=== PATIENT | male | born 1955 | race Hispanic/Latino ===

== ENCOUNTER 2018-04-25 06:52 | Day surgery (SDC) | payer BC ==
[2018-04-25 07:34] VITALS: BMI 30.1
[2018-04-25 08:08] LABS: BASO # 0.03 K/mm3 (0.0-2.0); BASO % 0.3 % (0.0-3.0); EOS # 0.3 (0.0-0.7); EOS % 3.3 % (1.5-5.0); GRAN # 5.42 (1.4-6.5); GRAN % 61.7 % (50.0-68.0); HEMOGLOBIN 13.5 g/dL (14.0-18.0); LYMPH # 2.4 (1.2-3.4); LYMPH % 27.6 % (22.0-35.0); MEAN CELL VOLUME 87.7 fl (80.0-105.0); MEAN CORPUSCULAR HEMOGLOBIN 30.1 pg (25.0-35.0); MEAN CORPUSCULAR HGB CONC 34.4 g/dl (31.0-37.0); MEAN PLATELET VOLUME 9.1 fl (7.0-11.0); MONO # 0.6 (0.1-0.6); MONO % 7.1 % (1.0-6.0); RBC 4.48 10^6/uL (3.5-6.1); RED CELL DISTRIBUTION WIDTH 12.9 % (11.5-14.5); WHITE BLOOD COUNT 8.8 10^3/uL (4.5-11.0)
[2018-04-25 08:15] LABS: BLOOD UREA NITROGEN 16 mg/dL (7-21); CALCIUM 9.2 mg/dL (8.4-10.5); GFR NON-AFRICAN AMERICAN > 60
[2018-04-25 08:17] LABS: INR 1.23; PROTHROMBIN TIME 14.2 SECONDS (9.4-12.5)
[2018-04-25 08:28] VITALS: O2SAT 97
[2018-04-25] MEDS ORDERED: Lidocaine 2% Inj (20ml) ONE (10:34)
[2018-04-25] MEDS ORDERED: Iodixanol 320 MG/ML 200 ML BOTTLE IV ONE (10:34)
[2018-04-25] MEDS ORDERED: Iohexol 350mgl/ml 50 ML ONE (10:34)
[2018-04-25] MEDS ORDERED: Midazolam 2 MG/2 ML VIAL ONE ×3 (10:55→11:12)
[2018-04-25] MEDS ORDERED: Eptifibatide 20 mg/10mL Inj IVP ONE (11:16)
[2018-04-25] MEDS ORDERED: Sodium Chloride 0.9% 1,000 ML IV SCH (13:15)
--- NOTE | 2018-04-25 21:40 | CARD ---
APPROVED REPORT Date of service: 04/25/2018 EKG Measurement Heart [id number] <Conclusion> Normal sinus rhythm Normal ECG
--- NOTE | 2018-04-25 23:13 | PROCN ---
DATE: 04/25/2018 PTCA and stent of an RCA preceded by cardiac catheterization. HISTORY: The patient is a 63-year-old male who presents with exertional angina. PAST MEDICAL HISTORY: Notable for diabetes mellitus, hypertension, obesity and smoking. FAMILY HISTORY: He has a strong family history for CAD with a brother who recently from a cardiac event. His stress test was abnormal. Because of this, cardiac catheterization was recommended. PROCEDURE: Left heart catheterization with coronary arteriography and left ventriculogram with supra-aortic valvular injection, followed by PTCA and stent of an RCA. Right femoral artery was cannulated with a 6-Danish sheath. There were no complications. I performed moderate sedation which included the presence of an independent trained observer that assisted in monitoring the patient's level of consciousness and physiologic status. After administration of Versed and fentanyl, my intra service time was 60 minutes. The findings on catheterization revealed a left ventricle that contracted normally. Estimated ejection fraction of 60%. The patient had a right dominant circulation. The RCA was a large vessel that was diffusely diseased and heavily calcified. In the proximal portion of the RCA, there was 99% stenosis noted. In the mid to distal RCA, there were heavily calcified lesions of approximately 50%. The left main artery was unremarkable. The LAD in its proximal portion revealed an eccentric 70% stenosis. The rest of the LAD and diagonal vessels revealed diffuse atherosclerosis. The circumflex artery and obtuse marginal branches revealed diffuse atherosclerosis without critical lesions. The patient was started on intravenous Angiomax as well as 2 boluses of Integrilin. The guiding catheter was placed in the ostium of the RCA and 0.014 ATW wire through a GuideLiner was used to cross the heavily calcified and subtotaled RCA. A 2 balloon, followed by a 2.5, followed by a 3 balloon was utilized to dilate the lesion. The wire was then exchanged for a greater support wire. A 3.5 x 15 mm drug-eluting stent was placed and deployed at 15 atmospheres of pressure. Repeat coronary arteriography after balloon deflation and removal revealed an excellent result with no residual stenosis and MAYURI-3 flow. The mid to distal 50-60% lesions in the RCA were not manipulated. Angio-Seal was used to close the femoral artery site. The patient tolerated the procedure well. In summary, the procedure was successful for PTCA and stent of a subtotally occluded RCA that was heavily calcified. A drug-eluting stent was utilized. Cardiac catheterization reveals normal LV function as well as diffuse calcification and atherosclerosis throughout his coronary tree. There is a residual eccentric 70% stenosis in the proximal LAD. Given these findings, the patient will need to remain on aspirin indefinitely and Plavix for least a year. He will need to undergo a strict cardiac risk reduction program. We will bring him back in 2 weeks for PTCA and stent of the LAD. Oliver Delgado MD
[2018-04-25 23:33] VITALS: RESP 20
[2018-04-26 06:43] VITALS: BP 137/73; PULSE 98; TEMP 98
[2018-04-26 07:14] LABS: BASO # 0.02 K/mm3 (0.0-2.0); BASO % 0.3 % (0.0-3.0); EOS # 0.3 (0.0-0.7); EOS % 3.5 % (1.5-5.0); GRAN # 4.27 (1.4-6.5); GRAN % 56.6 % (50.0-68.0); HEMOGLOBIN 12.9 g/dL (14.0-18.0); LYMPH # 2.2 (1.2-3.4); LYMPH % 28.6 % (22.0-35.0); MEAN CELL VOLUME 88.6 fl (80.0-105.0); MEAN CORPUSCULAR HEMOGLOBIN 29.5 pg (25.0-35.0); MEAN CORPUSCULAR HGB CONC 33.3 g/dl (31.0-37.0); MEAN PLATELET VOLUME 9.7 fl (7.0-11.0); MONO # 0.8 (0.1-0.6); RBC 4.37 10^6/uL (3.5-6.1); RED CELL DISTRIBUTION WIDTH 13.1 % (11.5-14.5); WHITE BLOOD COUNT 7.5 10^3/uL (4.5-11.0)
[2018-04-26 07:40] LABS: BLOOD UREA NITROGEN 11 mg/dL (7-21); CALCIUM 8.8 mg/dL (8.4-10.5); GFR NON-AFRICAN AMERICAN > 60
--- NOTE | 2018-04-26 09:47 | CP.PCM.HP ---
<Jacqui Hoff - Last Filed: 04/26/18 10:24> History of Present Illness - History of Present Illness History of Present Illness: Pgy3 Medicine note for Dr. Sanford 63yo male pmhx DM2, HTN, obesity, and extensive tobacco use presents for cardiac cath s/p abnormal stress test. Patient reports he has an extensive family history of cardiac disease and was worried about his heart in light of his chronic conditions and tobacco use. Patient had an abnormal stress test and was scheduled for cardiac catherization by Dr. Delgado. Patient was found to have a 99% stenosis in the proximal RCA and 70% stenosis in the proximal LAD. He had a SHABBIR stent placed in the RCA and is due to have a stent placed in the LAD next week. Patient tolerated procedure well and had no acute events overnight. He complained of some mild soreness and nursing noted an small area of ecchymosis at his right groin at the site of the cardiac cath. Patient denied other acute complaints of fever, chills, headache, dizziness, chest pain, palpitations, SOB, cough, abd pain, nausea, vomiting, bowel/bladder complaints, pain/swelling/numbness/tingling/coolness in his extremities bilaterally. 12point ROS reviewed and negative unless otherwise aforementioned above PMHx: DM2, HTN, obesity, and extensive tobacco use Meds: pls see chart ALL: NKDA SocHx: used to smoke 1ppd for years and quit 2-3 years ago. FamHx: 2 brothers and 1 sister of CAD; 1 sister is alive and open heart surgery. PMD: Dr Sneed Cardio: Dr Delgado Present on Admission - Present on Admission Any Indicators Present on Admission: No Review of Systems - Review of Systems All systems: reviewed and no additional remarkable complaints except Review of Systems: as per HPI Past Patient History - CARDIAC Hx Pacemaker: No - NEUROLOGICAL Hx Paralysis: No - HEMATOLOGICAL/ONCOLOGICAL Hx Blood Transfusions: No - MUSCULOSKELETAL/RHEUMATOLOGICAL Hx Musculoskeletal Disorders: No - PSYCHIATRIC Hx Emotional Abuse: No Hx Physical Abuse: No Hx Substance Use: No - SURGICAL HISTORY Hx Surgeries: Yes - ANESTHESIA Hx Anesthesia Reactions: No Hx Malignant Hyperthermia: No Meds Home Medications: Home Medication List Medication Instructions Recorded Confirmed Type RX: Clopidogrel [Plavix] 75 mg PO DAILY #30 tab 04/26/18 Rx Allergies/Adverse Reactions: Allergies Allergy/AdvReac Type Severity Reaction Status Date / Time No Known Allergies Allergy Verified 04/25/18 07:34 Physical Exam - Constitutional Appears: Non-toxic, No Acute Distress - Head Exam Head Exam: ATRAUMATIC, NORMAL INSPECTION, NORMOCEPHALIC - Eye Exam Eye Exam: EOMI, Normal appearance, PERRL. absent: Conjunctival injection, Scleral icterus Pupil Exam: NORMAL ACCOMODATION - ENT Exam ENT Exam: Mucous Membranes Moist - Neck Exam Neck exam: Positive for: Full Rom, Normal Inspection. Negative for: Lymphadenopathy - Respiratory Exam Respiratory Exam: Clear to Auscultation Bilateral, NORMAL BREATHING PATTERN. absent: Accessory Muscle Use, Rales, Rhonchi, Wheezes, Respiratory Distress - Cardiovascular Exam Cardiovascular Exam: +S1, +S2. absent: Systolic Murmur - GI/Abdominal Exam GI & Abdominal Exam: Normal Bowel Sounds, Soft. absent: Firm, Guarding, Rigid, Tenderness - Rectal Exam Rectal Exam: Deferred - Extremities Exam Extremities exam: Positive for: normal capillary refill, normal inspection, pedal pulses present. Negative for: calf tenderness, pedal edema, tenderness Additional comments: small area ecchymosis noted at right groin at site of cardiac cath minimal tenderness on palpation no bruit auscultated distal pulses intact b/l extremities warm to touch b/l - Back Exam Back exam: NORMAL INSPECTION. absent: rash noted - Neurological Exam Neurological exam: Alert, CN II-XII Intact, Oriented x3 - Psychiatric Exam Psychiatric exam: Normal Affect, Normal Mood - Skin Skin Exam: Dry, Intact, Normal Color, Warm Results - Vital Signs Recent Vital Signs: Last Vital Signs Temp 98.0 F 04/26/18 06:00 Pulse 98 H 04/26/18 06:00 Resp 20 04/26/18 06:00 BP 137/73 04/26/18 06:00 Pulse Ox 97 04/26/18 06:00 - Labs Result Diagrams: 04/26/18 06:45 04/26/18 06:45 Labs: Laboratory Results - last 24 hr 04/26/18 04/26/18 06:45 06:45 WBC 7.5 RBC 4.37 Hgb 12.9 L Hct 38.7 L MCV 88.6 MCH 29.5 MCHC 33.3 RDW 13.1 Plt Count 203 MPV 9.7 Gran % 56.6 Lymph % (Auto) 28.6 [place] % (Auto) 11.0 H Eos % (Auto) 3.5 Baso % (Auto) 0.3 Gran # 4.27 Lymph # (Auto) 2.2 Clark # (Auto) 0.8 H Eos # (Auto) 0.3 Baso # (Auto) 0.02 Sodium 136 Potassium 4.8 Chloride 103 Carbon Dioxide 28 Anion Gap 10 BUN 11 Creatinine 0.7 L Est GFR ( Amer) > 60 Est GFR (Non-Af Amer) > 60 Random Glucose 196 H Calcium 8.8 Assessment & Plan - Assessment and Plan (Free Text) Assessment: -CAD s/p RCA stent -Multivessel CAD -HTN -DM2 -Hypercholesterolemia -Obesity -Extensive tobacco use in the past Plan: Patient is s/p cardiac cath with 1 SHABBIR in the RCA and is due to have a stent in the LAD next week. Patient has been on ASA 81mg daily which he will be on indefinitely and has been started on Plavix 75mg daily for 1 year as of now. Patient also continued on high intensity statin due to ASCVD risk. Patient will likely be discharged later today after evaluation by cardiology and will return for his procedure next week. Patient was normotensive since admission. Patient was advised strongly on following a heart healthy diet and to continue tobacco cessation. He has been started on a strict cardiac risk reduction program. Discussed with Dr. Claribel Hoff PGY3 <rA Sanford S - Last Filed: 04/26/18 19:23> Results - Vital Signs Recent Vital Signs: Last Vital Signs Temp 98.0 F 04/26/18 06:00 Pulse 98 H 04/26/18 06:00 Resp 20 04/26/18 06:00 BP 137/73 04/26/18 06:00 Pulse Ox 97 04/26/18 06:00 - Labs Result Diagrams: 04/26/18 06:45 04/26/18 06:45 Labs: Laboratory Results - last 24 hr 04/26/18 04/26/18 06:45 06:45 WBC 7.5 RBC 4.37 Hgb 12.9 L Hct 38.7 L MCV 88.6 MCH 29.5 MCHC 33.3 RDW 13.1 Plt Count 203 MPV 9.7 Gran % 56.6 Lymph % (Auto) 28.6 Clark % (Auto) 11.0 H Eos % (Auto) 3.5 Baso % (Auto) 0.3 Gran # 4.27 Lymph # (Auto) 2.2 Clark # (Auto) 0.8 H Eos # (Auto) 0.3 Baso # (Auto) 0.02 Sodium 136 Potassium 4.8 Chloride 103 Carbon Dioxide 28 Anion Gap 10 BUN 11 Creatinine 0.7 L Est GFR ( Amer) > 60 Est GFR (Non-Af Amer) > 60 Random Glucose 196 H Calcium 8.8 Assessment & Plan - Assessment and Plan (Free Text) Plan: The patient was seen and examined by me. I reviewed the note of the medical technologist generalist and agree with the assessment and plan. I have reviewed the medications and the last labs. Pt has CAD with RCA stent that placed yesterday with drug eluting stent. She was placed on Plavix. She will need repeat cath for LAD lesion in the next 1-2 weeks. The pt will be on Crestor for his dyslipidemia. He is obese with BMI-30 and was advised to diet and exercise. Spoke to Dr Delgado and pt is ready to go home and be discharged. He has no pain. His right groin does not show bleeding or hematoma.
--- NOTE | 2018-04-26 09:48 | CP.PCM.DIS ---
<Jacqui Hoff - Last Filed: 04/26/18 10:51> Provider - Provider Attending physician: Sj Barnes MD Primary care physician: Sj Barnes MD Consults: Dr. Delgado- Cardiology Time Spent in preparation of Discharge (in minutes): 35 Diagnosis - Discharge Diagnosis (1) CAD (coronary atherosclerotic disease) Status: Acute (2) Multi-vessel coronary artery stenosis Status: Acute (3) Hypertension Status: Chronic (4) Diabetes Status: Chronic (5) Hypercholesterolemia Status: Chronic (6) Obesity (BMI 30.0-34.9) Status: Chronic (7) History of tobacco use disorder Status: Chronic Hospital Course - Lab Results Lab Results: Most Recent Lab Values WBC 7.5 10^3/uL (4.5-11.0) 04/26/18 06:45 RBC 4.37 10^6/uL (3.5-6.1) 04/26/18 06:45 Hgb 12.9 g/dL (14.0-18.0) L 04/26/18 06:45 Hct 38.7 % (42.0-52.0) L 04/26/18 06:45 MCV 88.6 fl (80.0-105.0) 04/26/18 06:45 MCH 29.5 pg (25.0-35.0) 04/26/18 06:45 MCHC 33.3 g/dl (31.0-37.0) 04/26/18 06:45 RDW 13.1 % (11.5-14.5) 04/26/18 06:45 Plt Count 203 10^3/uL (120.0-450.0) 04/26/18 06:45 MPV 9.7 fl (7.0-11.0) 04/26/18 06:45 Gran % 56.6 % (50.0-68.0) 04/26/18 06:45 Lymph % (Auto) 28.6 % (22.0-35.0) 04/26/18 06:45 [place] % (Auto) 11.0 % (1.0-6.0) H 04/26/18 06:45 Eos % (Auto) 3.5 % (1.5-5.0) 04/26/18 06:45 Baso % (Auto) 0.3 % (0.0-3.0) 04/26/18 06:45 Gran # 4.27 (1.4-6.5) 04/26/18 06:45 Lymph # (Auto) 2.2 (1.2-3.4) 04/26/18 06:45 [place] # (Auto) 0.8 (0.1-0.6) H 04/26/18 06:45 Eos # (Auto) 0.3 (0.0-0.7) 04/26/18 06:45 Baso # (Auto) 0.02 K/mm3 (0.0-2.0) 04/26/18 06:45 PT 14.2 SECONDS (9.4-12.5) H 04/25/18 07:52 INR 1.23 04/25/18 07:52 APTT 31.0 Seconds (25.1-36.5) 04/25/18 07:52 Sodium 136 mmol/L (132-148) 04/26/18 06:45 Potassium 4.8 mmol/L (3.6-5.0) 04/26/18 06:45 Chloride 103 mmol/L (98-107) 04/26/18 06:45 Carbon Dioxide 28 mmol/L (21-33) 04/26/18 06:45 Anion Gap 10 (10-20) 04/26/18 06:45 BUN 11 mg/dL (7-21) 04/26/18 06:45 Creatinine 0.7 mg/dl (0.8-1.5) L 04/26/18 06:45 Est GFR ( Amer) > 60 04/26/18 06:45 Est GFR (Non-Af Amer) > 60 04/26/18 06:45 Random Glucose 196 mg/dL (70-110) H 04/26/18 06:45 Calcium 8.8 mg/dL (8.4-10.5) 04/26/18 06:45 Blood Type O NEGATIVE 04/25/18 07:52 Blood Type Confirm O NEGATIVE 04/25/18 08:10 Antibody Screen Negative 04/25/18 07:52 BBK History Checked No verified bt 04/25/18 07:52 - Hospital Course Hospital Course: Upon Admission 63yo male pmhx DM2, HTN, obesity, and extensive tobacco use presents for cardiac cath s/p abnormal stress test. Patient reports he has an extensive family history of cardiac disease and was worried about his heart in light of his chronic conditions and tobacco use. Patient had an abnormal stress test and was scheduled for cardiac catherization by Dr. Delgado. Patient was found to have a 99% stenosis in the proximal RCA and 70% stenosis in the proximal LAD. He had a SHABBIR stent placed in the RCA and is due to have a stent placed in the LAD next week. Hospital Course Patient tolerated procedure well and had no acute events overnight. He complained of some mild soreness and nursing noted an small area of ecchymosis at his right groin at the site of the cardiac cath. Patient denied other acute complaints of fever, chills, headache, dizziness, chest pain, palpitations, SOB, cough, abd pain, nausea, vomiting, bowel/bladder complaints, pain/swelling/numbness/tingling/coolness in his extremities bilaterally. Patient was evaluated by cardiology and deemed medically optimized for discharge. Upon Discharge Patient instructed to start taking Plavix daily. Patient instructed to HOLD metformin for 2 days and to RESUME taking it Sunday04/28/18. Patient to resume all other home medications upon discharge and follow a low fat, low carb, low salt diet. Patient scheduled for Cardiac Catheterization on Sunday05/01/2018 at 8:30 A.M If symptoms returned patient instructed to visit the nearest ER Instructions discussed in detail with patient who understood and agreed. Please note this is a discharge summary For full hospital course please refer to EMR. Discharge Exam - Head Exam Head Exam: ATRAUMATIC, NORMAL INSPECTION, NORMOCEPHALIC - Eye Exam Eye Exam: EOMI, Normal appearance, PERRL. absent: Conjunctival injection, Scleral icterus - ENT Exam ENT Exam: Mucous Membranes Moist - Neck Exam Neck exam: Full Rom - Respiratory Exam Respiratory Exam: Clear to PA & Lateral, NORMAL BREATHING PATTERN, UNREMARKABLE. absent: Accessory Muscle Use, Rales, Rhonchi, Wheezes, Respiratory Distress - Cardiovascular Exam Cardiovascular Exam: +S1, +S2 - GI/Abdominal Exam GI & Abdominal Exam: Normal Bowel Sounds, Soft. absent: Firm, Guarding, Rigid, Tenderness - Rectal Exam Rectal Exam: Deferred - Extremities Exam Extremities exam: normal capillary refill, pedal pulses present Additional comments: small area ecchymosis noted at right groin at site of cardiac cath minimal tenderness on palpation no bruit auscultated distal pulses intact b/l extremities warm to touch b/l - Back Exam Back exam: NORMAL INSPECTION. absent: rash noted - Neurological Exam Neurological exam: Alert, CN II-XII Intact, Oriented x3 - Psychiatric Exam Psychiatric exam: Normal Affect, Normal Mood - Skin Skin Exam: Dry, Intact, Warm Discharge Plan - Discharge Medications Prescriptions: RX: Clopidogrel [Plavix] 75 mg PO DAILY #30 tab - Follow Up Plan Condition: FAIR Disposition: HOME/ ROUTINE Instructions: Heart Healthy Diet, Cardiac Catheterization (DC), Coronary Stenting (DC), Diabetes Diet , Angina (DC), Low Salt Diet, Quitting Smoking, Coronary Heart Disease (DC) Additional Instructions: You are being discharged from [facility] (Formerly [facility]). Upon discharge you are being started on a new medication as prescribed: -Plavix 75mg 1 tab by mouth daily Disp#30 Please HOLD metformin for 2 days. RESUME taking it Sunday04/28/18. Please resume all other home medications upon discharge. Please follow a low fat, low carb, low salt diet. You are scheduled for Cardiac Catheterization on Sunday05/01/2018 at 8:30 A.M. You have to be there by 6:30 A.M. If symptoms return please visit your nearest Emergency Room. Referrals: Sj Barnes MD [Primary Care Provider] - Oliver Delgado MD [Staff Provider] - <Ar Sanford S - Last Filed: 04/26/18 19:26> Provider - Provider Attending physician: Sj Barnes MD Primary care physician: Sj Barnes MD Hospital Course - Lab Results Lab Results: Most Recent Lab Values WBC 7.5 10^3/uL (4.5-11.0) 04/26/18 06:45 RBC 4.37 10^6/uL (3.5-6.1) 04/26/18 06:45 Hgb 12.9 g/dL (14.0-18.0) L 04/26/18 06:45 Hct 38.7 % (42.0-52.0) L 04/26/18 06:45 MCV 88.6 fl (80.0-105.0) 04/26/18 06:45 MCH 29.5 pg (25.0-35.0) 04/26/18 06:45 MCHC 33.3 g/dl (31.0-37.0) 04/26/18 06:45 RDW 13.1 % (11.5-14.5) 04/26/18 06:45 Plt Count 203 10^3/uL (120.0-450.0) 04/26/18 06:45 MPV 9.7 fl (7.0-11.0) 04/26/18 06:45 Gran % 56.6 % (50.0-68.0) 04/26/18 06:45 Lymph % (Auto) 28.6 % (22.0-35.0) 04/26/18 06:45 [place] % (Auto) 11.0 % (1.0-6.0) H 04/26/18 06:45 Eos % (Auto) 3.5 % (1.5-5.0) 04/26/18 06:45 Baso % (Auto) 0.3 % (0.0-3.0) 04/26/18 06:45 Gran # 4.27 (1.4-6.5) 04/26/18 06:45 Lymph # (Auto) 2.2 (1.2-3.4) 04/26/18 06:45 [place] # (Auto) 0.8 (0.1-0.6) H 04/26/18 06:45 Eos # (Auto) 0.3 (0.0-0.7) 04/26/18 06:45 Baso # (Auto) 0.02 K/mm3 (0.0-2.0) 04/26/18 06:45 PT 14.2 SECONDS (9.4-12.5) H 04/25/18 07:52 INR 1.23 04/25/18 07:52 APTT 31.0 Seconds (25.1-36.5) 04/25/18 07:52 Sodium 136 mmol/L (132-148) 04/26/18 06:45 Potassium 4.8 mmol/L (3.6-5.0) 04/26/18 06:45 Chloride 103 mmol/L (98-107) 04/26/18 06:45 Carbon Dioxide 28 mmol/L (21-33) 04/26/18 06:45 Anion Gap 10 (10-20) 04/26/18 06:45 BUN 11 mg/dL (7-21) 04/26/18 06:45 Creatinine 0.7 mg/dl (0.8-1.5) L 04/26/18 06:45 Est GFR ( Amer) > 60 12 06:45 Est GFR (Non-Af Amer) > 60 04/26/18 06:45 Random Glucose 196 mg/dL (70-110) H 04/26/18 06:45 Calcium 8.8 mg/dL (8.4-10.5) 04/26/18 06:45 Blood Type O NEGATIVE 04/25/18 07:52 Blood Type Confirm O NEGATIVE 04/25/18 08:10 Antibody Screen Negative 04/25/18 07:52 BBK History Checked No verified bt 04/25/18 07:52 - Hospital Course Hospital Course: The patient was seen and examined by me. I reviewed the note of the medical res ident and agree with the assessment and plan. I have reviewed the medications and the last labs. Pt has CAD with RCA stent that placed yesterday with drug eluting stent. She was placed on Plavix. Spoke to Dr Delgado and pt is ready to be discharged. His right groin does not show bleeding or hematoma.
--- NOTE | 2018-04-26 10:43 | PN ---
CARDIOLOGY FOLLOWUP DATE: 04/26/2018 SUBJECTIVE: The patient is ambulating without symptoms. PHYSICAL EXAMINATION: VITAL SIGNS: Blood pressure is 137/73 and heart rates in the 90s. NECK: Negative JVD. LUNGS: Without rales. HEART: S1 and S2. EXTREMITIES: Without edema. The right groin site is stable. LABORATORY DATA: Hemoglobin is 12.9. BUN and creatinine are unremarkable. The glucose is 196. IMPRESSION: 1. Status post a percutaneous transluminal coronary angioplasty and stent of subtotally occluded right coronary artery. 2. Multivessel coronary artery disease. 3. Diabetes mellitus. 4. Nicotine addiction. 5. Hypertension. 6. Hypercholesterolemia. 7. Obesity. Given these findings, the patient is stable for discharge today. I have discussed his medications with him including his aspirin, Plavix and statin therapy. He will return next week for PTCA and stent of an LAD. Oliver Delgado MD
== END 2018-04-26 10:34 | disposition home or self-care (01) ==
LOC: CATH 06:52 → 2A 12:13 → 2RNO 12:20 → 2RSO 18:54 → CATH 04-26 10:34
PROVIDERS: ATTEND Internal Medicine
DX: I25.119 Atherosclerotic heart disease of native coronary artery with unspecified angina pectoris (principal); I10 Essential (primary) hypertension; E78.00 Pure hypercholesterolemia, unspecified; E11.9 Type 2 diabetes mellitus without complications; E66.9 Obesity, unspecified; F17.200 Nicotine dependence, unspecified, uncomplicated; Z82.49 Family history of ischemic heart disease and other diseases of the circulatory system
CPT/HCPCS: 36415; 80048; 85025; 85610; 85730; 86850; 86900; 93005; 93458; 99152; 99153; C1725 ×4; C1760; C1769 ×4; C1874; C1887 ×2; C2629; C9600; J0583; J1327; J1644; J2250; J3010; J7040; Q9966; Q9967

== ENCOUNTER 2018-05-01 06:26 | Day surgery (SDC) | payer BC ==
[2018-05-01 08:24] LABS: BASO # 0.03 K/mm3 (0.0-2.0); BASO % 0.3 % (0.0-3.0); EOS # 0.4 (0.0-0.7); EOS % 4.4 % (1.5-5.0); GRAN # 5.18 (1.4-6.5); HEMOGLOBIN 14.5 g/dL (14.0-18.0); LYMPH # 2.6 (1.2-3.4); LYMPH % 28.7 % (22.0-35.0); MEAN CELL VOLUME 86.7 fl (80.0-105.0); MEAN CORPUSCULAR HEMOGLOBIN 31.6 pg (25.0-35.0); MEAN CORPUSCULAR HGB CONC 36.4 g/dl (31.0-37.0); MEAN PLATELET VOLUME 9.3 fl (7.0-11.0); MONO # 0.8 (0.1-0.6); MONO % 8.6 % (1.0-6.0); RBC 4.59 10^6/uL (3.5-6.1); RED CELL DISTRIBUTION WIDTH 12.9 % (11.5-14.5); WHITE BLOOD COUNT 8.9 10^3/uL (4.5-11.0)
[2018-05-01 08:35] LABS: INR 1.2; PARTIAL THROMBOPLASTIN TIME 31.7 Seconds (25.1-36.5); PROTHROMBIN TIME 13.9 SECONDS (9.4-12.5)
[2018-05-01 08:44] LABS: LDL CHOLESTEROL 84 mg/dL (0-129)
[2018-05-01 08:46] LABS: BLOOD UREA NITROGEN 16 mg/dL (7-21); CALCIUM 9.9 mg/dL (8.4-10.5); GFR NON-AFRICAN AMERICAN > 60; HDL CHOLESTEROL 44 mg/dL (29-60)
[2018-05-01] MEDS ORDERED: Iodixanol 320 MG/ML 100 ML BOTTLE IV ONE (09:16)
[2018-05-01] MEDS ORDERED: Iodixanol 320 MG/ML 200 ML BOTTLE IV ONE (09:16)
[2018-05-01] MEDS ORDERED: Iohexol 350mgl/ml 50 ML ONE (09:16)
[2018-05-01] MEDS ORDERED: Lidocaine 2% Inj (20ml) ONE (09:16)
[2018-05-01] MEDS ORDERED: Midazolam 2 MG/2 ML VIAL ONE ×2 (09:28→09:35)
[2018-05-01] MEDS ORDERED: Eptifibatide 20 mg/10mL Inj IVP ONE (10:09)
[2018-05-01] MEDS ORDERED: Sodium Chloride 0.9% 1,000 ML IV SCH (10:30)
--- NOTE | 2018-05-01 11:16 | CARDCATH ---
PROCEDURE DATE: 05/01/2018 HISTORY: The patient is a 63-year-old male with multiple cardiac risk factors who has documented multivessel CAD and the patient presents for PTCA and stent of his LAD. The left femoral artery was cannulated with a 6-Turkmen sheath. There were no complications. I performed moderate sedation which included the presence of an independent trained observer that assisted in monitoring the patient's level of consciousness and physiologic status. After administration of Versed and fentanyl, my intra service time was 45 minutes. The findings on catheterization revealed a right dominant circulation. The stent in the subtotally occluded RCA which was placed last week is patent with good MAYURI III flow down the RCA. The left main artery revealed diffuse atherosclerosis without critical lesions. The LAD revealed 80% stenoses which was an eccentric lesion best seen in the RANGEL projection. The patient was started on intravenous Angiomax on the fluoroscopic guide, the guiding catheter was placed in the ostium of the left main artery and 0.014 ATW wire was used to cross the critical lesion. A 3.5 x 12 mm drug-eluting stent was placed and deployed at 17 atmospheres of pressure. Repeat coronary aortography revealed a residual 30-40% stenoses in the midportion of the stent. Suggesting a circumferential calcific lesion. Attempts at dilating with a 4.0 balloon was unsuccessful. Repeat coronary aortography revealed no change in the lesion with a patent stent with a 30% mid stenoses residual with MAYURI III flow. Angio-Seal was used to close left femoral artery site. The patient tolerated the procedure well. In summary, the procedure was successful PTCA and stent of an eccentric 80% stenosis in the proximal LAD. The postdilatation was unsuccessful with a 4.0 balloon, given his circumstantial calcification. Coronary artery revealed a patent stent in the RCA that was placed 1 week ago. A measurement of his PRU revealed the patient to be resistant to Plavix. He was given 2 doses of Integrilin and started on Effient. Given these findings, the patient will need to remain on aspirin indefinitely and Effient for at least a year and undergo a strict cardiac risk reduction program. Oliver Delgado MD [facility] # [id number]
--- NOTE | 2018-05-01 11:57 | CARD ---
APPROVED REPORT Date of service: 05/01/2018 EKG Measurement Heart [id number] <Conclusion> Normal sinus rhythm Possible Inferior infarct, age undetermined NSSTW changes
--- NOTE | 2018-05-01 13:40 | CARD ---
APPROVED REPORT Date of service: 05/01/2018 EKG Measurement Heart [id number] <Conclusion> Normal sinus rhythm Q in lll NSSTW changes
[2018-05-01 19:45] VITALS: RESP 20; TEMP 97.6
[2018-05-02 06:20] VITALS: O2SAT 98
[2018-05-02 07:25] LABS: BASO # 0.04 K/mm3 (0.0-2.0); BASO % 0.6 % (0.0-3.0); EOS # 0.3 (0.0-0.7); EOS % 4.1 % (1.5-5.0); GRAN # 3.88 (1.4-6.5); HEMOGLOBIN 12.7 g/dL (14.0-18.0); LYMPH # 1.8 (1.2-3.4); LYMPH % 26.7 % (22.0-35.0); MEAN CELL VOLUME 87.9 fl (80.0-105.0); MEAN CORPUSCULAR HEMOGLOBIN 30.2 pg (25.0-35.0); MEAN CORPUSCULAR HGB CONC 34.3 g/dl (31.0-37.0); MEAN PLATELET VOLUME 9.4 fl (7.0-11.0); MONO # 0.6 (0.1-0.6); MONO % 9.6 % (1.0-6.0); RBC 4.21 10^6/uL (3.5-6.1); WHITE BLOOD COUNT 6.6 10^3/uL (4.5-11.0)
[2018-05-02 07:46] LABS: BLOOD UREA NITROGEN 13 mg/dL (7-21); CALCIUM 9.2 mg/dL (8.4-10.5); GFR NON-AFRICAN AMERICAN > 60
[2018-05-02 09:35] VITALS: BP 141/86; PULSE 82
[2018-05-02] MEDS ORDERED: Non Formulary Medication (Rosuvastatin Calcium [Crestor] 20 MG) PO SCH (10:00)
[2018-05-02] MEDS ORDERED: buPROPion SR 150 MG TABLET PO SCH (10:00)
[2018-05-02] MEDS ORDERED: Metoprolol Succinate 50 mg XL Tab PO SCH (10:00)
--- NOTE | 2018-05-02 11:25 | PN ---
CARDIOLOGY FOLLOWUP DATE: 05/02/2018 SUBJECTIVE: The patient is stable status post multivessel PTCA and stent. PHYSICAL EXAMINATION: VITAL SIGNS: Blood pressure 141/86 and heart rates in the 80s. NECK: Negative JVD. LUNGS: Without rales. HEART: S1 and S2. EXTREMITIES: Without edema. LABORATORY DATA: Hemoglobin is 12.7. BUN and creatinine unremarkable. Glucose is 242. IMPRESSION: 1. Stable post multivessel percutaneous transluminal coronary angioplasty and stent with drug-eluting stents. 2. Plavix resistant. 3. Diabetes mellitus. 4. Hypertension. 5. Hypercholesterolemia. 6. Obesity. Given these findings, the patient is stable for discharge. He will go home on aspirin, Effient and statin therapy. We will enroll him in the cardiac rehab program. Oliver Delgado MD
--- NOTE | 2018-05-02 12:07 | CON ---
DATE: 05/02/2018 HISTORY OF PRESENT ILLNESS: The patient is a 63-year-old white male with history of poorly controlled noninsulin-dependent diabetes mellitus, hypertension, hypercholesteremia, history of tobacco abuse in the past. History of ethanol abuse in the past. The patient has positive stress test by Dr. Delgado. He underwent catheterization and stenting. The patient did well, he has resistance to on Effient. Blood sugars are better controlled. The patient will be discharged as planned by Dr. Delgado most likely today. PHYSICAL EXAMINATION: VITAL SIGNS: Stable. CHEST: Clear to auscultation and percussion. CARDIOVASCULAR: no murmurs. ABDOMEN: Benign. EXTREMITIES: Without cyanosis, clubbing, or edema. NEUROLOGIC: Grossly intact. REVIEW OF SYSTEMS: Pertinent only for some shortness of breath. He has no chest pain. There is no nausea, vomiting, diarrhea. There is no dysuria or polyuria. The patient has no headache. No change in mental status. No perfusion. No disorientation, and no syncope. IMPRESSION: A 63-year-old white male with long history of poorly controlled diabetes mellitus, history of tobacco abuse, history of alcohol abuse in the past, history of hypertension and hyperlipidemia with new onset, newly diagnosed coronary artery disease. Sj Barnes MD
== END 2018-05-02 11:38 | disposition home or self-care (01) ==
LOC: CATH 06:26 → 2RSO 10:45 → CATH 05-02 11:38
PROVIDERS: ATTEND Internal Medicine Cardiovascular Disease
DX: I25.10 Atherosclerotic heart disease of native coronary artery without angina pectoris (principal); E11.9 Type 2 diabetes mellitus without complications; I10 Essential (primary) hypertension; E78.00 Pure hypercholesterolemia, unspecified; E66.9 Obesity, unspecified
CPT/HCPCS: 36415; 80048; 80061; 85025; 85576; 85610; 85730; 86850; 86900; 93005; 93454; 99152; 99153; C1725; C1760; C1769 ×2; C1874; C1887; C2629; C9600; J0583; J1327; J1644; J2250; J3010; J7030; Q9966; Q9967 ×2

== ENCOUNTER 2018-09-30 17:06 | Emergency (ER) | payer OTHER, BC ==
[2018-09-30 17:13] VITALS: BMI 28.2
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
[2018-09-30 17:19] VITALS: BP 126/76; PULSE 84; RESP 18; TEMP 98.3; O2SAT 98
== END 2018-09-30 18:07 | disposition home or self-care (01) ==
LOC: ED 17:06
DX: S16.1XXA Strain of muscle, fascia and tendon at neck level, initial encounter (principal); S13.4XXA Sprain of ligaments of cervical spine, initial encounter; V49.9XXA Car occupant (driver) (passenger) injured in unspecified traffic accident, initial encounter
CPT/HCPCS: 96372; 99284; J1885